=== PATIENT | male | born 1995 | race Caucasian/White ===

== ENCOUNTER 2024-04-18 12:25 | Emergency (ER) | payer SELFPAY ==
[2024-04-18 12:35] VITALS: BP 132/82; PULSE 95; RESP 16; TEMP 36.4; O2SAT 98
--- NOTE | 2024-04-18 12:44 | ED.URI ---
HPI - URI/Sore Throat General Chief Complaint: Upper Respiratory Infection Stated Complaint: sore throat,white spots Time Seen by Provider: 04/18/24 12:44 Source: patient, family, RN notes reviewed and old records reviewed Mode of arrival: ambulatory Limitations: no limitations History of Present Illness HPI Narrative: 28 year old male accompanied by spouse with 4 day history of sore throat. Patient states today that it feels like it is swelling shut, he has been taking Tylenol and using Mucinex throat spray and also gargling with salt water for his symptoms. Patient reports that he had headache and body aches, 3 days ago and took home COVID test which was negative. Patient reports that he has been awakening during the night wet from sweating. MD elicited complaint: sore throat and other (sweats, body aches, and headache) Onset (ago): day(s) (4) Pain scale (0-10): 6 Able to tolerate fluids by mouth: Yes Treatments prior to arrival: acetaminophen and other (gargling with salt water and using Mucinex throat spray) Related Data Allergies Allergy/AdvReac Type Severity Reaction Status Date / Time No Known Allergies Allergy Unverified 11/06/16 16:50 Review of Systems Review of Systems: CONSTITUTIONAL: reports malaise, chills, sweats, or fever. EYES: Denies visual changes, redness, or discharge. ENT: Reports rhinorrhea, congestion,no sinus pain, no otalgia and positive sore throat. CARDIOVASCULAR: Denies chest pain, palpitations, or edema. RESPIRATORY: Reports no cough.? Denies dyspnea. GASTROINTESTINAL: Denies abdominal pain, nausea, vomiting, diarrhea SKIN: Denies rash or itching. MUSCULOSKELETAL: Reports myalgia. NEUROLOGIC: reports headache. All systems reviewed & are unremarkable except as noted in HPI and below PMFSH Past Medical History Medical History (Updated 04/18/24 @ 13:31 by Miley Bah NP) Asthma as child Social History Social History (Updated 04/18/24 @ 13:31 by Miley Bah NP) Smoking status: Never smoker Alcohol intake: current Alcohol use details: social Substance use type: does not use Living arrangements: with family Gender identity (if verbalized by the patient): Male Comments At time of signature, agree with nursing past medical, surgical, social and family history. There is no relevant family history pertinent to the presenting complaint Exam Narrative: GENERAL: Well-appearing, well-nourished, and in no acute distress. HEAD: Normocephalic EYES: PERRLA, conjunctivae clear ENT: Nares clear, turbinates edematous and erythematous, clear discharge. Mucous membranes moist. TM pearly pederson with dull light reflex bilaterally; no tragal tenderness. Oropharynx erythematous without lesions. Tonsils red enlarged and without exudate, no drooling, no hoarseness, no trismus, uvula swollen but midline, painful swallowing NECK: Supple. No lymphadenopathy CHEST: Clear to auscultation, breath sounds equal. No wheezing, rhonchi, rales, or stridor. No respiratory distress, speaks in full sentences.no cough, SAO2 98% on room air HEART: Regular rate and rhythm. No murmur heard. SKIN: Warm, dry, no rash. NEURO: Alert and oriented x3. PSYCH: Normal mood and affect Course Course Emergency Course: Patient is aware of diagnosis, understands and agrees to treatment plan.? Anticipatory guidance given.? Patient agrees to follow-up as directed and is aware of reasons to seek care at the emergency department. Portions of this record may have been created with voice recognition software Level of Care: Express Care Visit Vital Signs Vital signs: Vital Signs Temperature 36.4 C L 04/18/24 12:35 Pulse Rate 95 04/18/24 12:35 Respiratory Rate 16 04/18/24 12:35 Blood Pressure 132/82 04/18/24 12:35 Pulse Oximetry 98 04/18/24 12:35 Temperature 36.4 C L 04/18/24 12:35 Pulse Rate 95 04/18/24 12:35 Respiratory Rate 16 04/18/24 12:35 Bl
== END 2024-04-18 13:01 | disposition home or self-care (01) ==
PROVIDERS: Emergency Provider Registered Nurse
DX: J02.0 Streptococcal pharyngitis (principal)
CPT/HCPCS: 87880; 99203; G0463